=== PATIENT | female | born 1985 | race Two or more races ===

== ENCOUNTER → 2025-04-30 | Outpatient (CLI) | payer MEDICAID, SELFPAY ==
--- NOTE | 2025-04-30 15:00 | XR_ITS ---
Examination: Breast ultrasound, unilateral, right complete Date and time of exam: April 30, 2025, 1455 hours INDICATIONS: Right breast pain beginning one year ago Technique: Real-time monge scale ultrasonographic imaging performed right breast including all 4 quadrants as well as nipple retroareolar and axillary region. Findings: 7:00 cyst 6 x 3 mm Retroareolar circumscribed nodule 4 x 3 mm IMPRESSION: BI-RADS Category 2: Benign findings
== END | disposition home or self-care (01) ==
LOC: CDIM 14:36
PROVIDERS: PCP Nurse Practitioner Primary Care
DX: N64.4 Mastodynia (principal)
CPT/HCPCS: 76641